=== PATIENT | male | born 1950 | race Caucasian/White ===

== ENCOUNTER 2024-10-23 07:30 | Day surgery (SDC) | payer OTHER, MEDICARE ==
[2024-10-05 15:01] VITALS: BMI 39.1
[2024-10-23] MEDS ORDERED: PHENYLEPHRINE 2.5% OPTHALMIC DROP 2ML BOTTLE ONE (07:38)
[2024-10-23] MEDS ORDERED: TROPICAMIDE 1% 3 ML EYE DROPS ONE (07:38)
[2024-10-23] MEDS: OFLOXACIN 0.3% OPHTHALMIC SOLUTION 5 ML BOTTLE OD SCH (07:55)
[2024-10-23] MEDS: TROPICAMIDE 1% OPHTH SOLN 15 ML BOTTLE OD SCH (07:55)
[2024-10-23] MEDS: CYCLOPENTOLATE HCL 1% OPHTH SOLN 2 ML BOTTLE OD SCH (07:55)
[2024-10-23] MEDS: PHENYLEPHRINE 2.5% OPHTH SOLN 15 ML BOTTLE OD SCH (07:55)
[2024-10-23] MEDS: KETOROLAC TROMETHAMINE 0.5% EYE DROP 1 DROP DROPS OD SCH (07:55)
[2024-10-23] MEDS ORDERED: BACITRACIN/POLYMYXIN OPH OINT 3.5 GM TUBE ONE (09:13)
[2024-10-23] MEDS ORDERED: EPINEPHrine 1:1000 P/F - 1 MG/ML AMP ONE (09:13)
[2024-10-23] MEDS ORDERED: EPI-SHUGARCAINE (EPINEPHRINE 0.025% & LIDOCAINE-PF 0.75%) 4ML ONE (09:14)
[2024-10-23] MEDS ORDERED: BETAXOLOL HCL 0.25% OPHTHALMIC 10 ML DROPSBTL ONE (09:14)
[2024-10-23] MEDS ORDERED: TETRACAINE 0.5% OPHTH SOLN 2 ML BOTTLE ONE (09:14)
[2024-10-23] MEDS ORDERED: POVIDONE-IODINE 5% OPHTHALMIC PREP 30 ML SOLUTION ONE (09:14)
[2024-10-23] MEDS ORDERED: NEO/POLYMYX B SULF/DEXAMETH OPHTHALMIC 5ML BOTTLE ONE (09:14)
[2024-10-23] MEDS ORDERED: ACETAMINOPHEN 325 MG TABLET (FP) PO PRN (09:21)
[2024-10-23] MEDS ORDERED: MIDAZOLAM HCL 2 MG/2 ML SINGLE DOSE VIAL ONE (09:34)
[2024-10-23 13:08] VITALS: BP 155/70; PULSE 73; RESP 18; TEMP 97.9
== END 2024-10-23 11:35 | disposition home or self-care (01) ==
LOC: FASU 07:30
PROVIDERS: ATTEND Ophthalmology
PROC: 08RJ3JZ Replacement of Right Lens with Synthetic Substitute, Percutaneous Approach (ICD-10-PCS; principal; 2024-10-23 09:54)
DX: H25.89 Other age-related cataract (principal)
CPT/HCPCS: 66984; V2632; 82962